=== PATIENT | female | born 1995 | race Caucasian/White ===

== ENCOUNTER 2020-11-13 22:00 | Emergency (ER) | payer OTHER ==
[2020-11-13] MEDS ORDERED: Albuterol/Ipratropium 3.0-0.5 MG/3 ML Neb Soln NEB ONE (23:22)
[2020-11-13] MEDS ORDERED: Benzonatate 100 MG Cap PO ONE (23:22)
[2020-11-14 00:05] LABS: ANION GAP 11.8 mEq/L (7-13); CHLORIDE,CL 102 mmol/L (98-107); SODIUM,NA 137 mmol/L (136-145)
--- NOTE | 2020-11-14 00:13 | EDM.PDOC ---
ED HPI GENERAL MEDICAL PROBLEM - General Chief Complaint: Respiratory Problem Stated Complaint: 97.7 TEMP, COUGHING, RUNNY NOSE Time Seen by Provider: 11/13/20 23:00 Source of Information: Reports: Patient History Limitations: Reports: No Limitations - History of Present Illness INITIAL COMMENTS - FREE TEXT/NARRATIVE: ED with c/o cough, congestion for one week. Hx allergies. Denies asthma. Tonight cough worse, throat sore from coughing. No nausea or vomiting. no COVID exposure. Trying OTC cough and cold but not helping. - Related Data Allergies Allergy/AdvReac Type Severity Reaction Status Date / Time No Known Allergies Allergy Verified 11/13/20 22:15 Home Meds: Home Meds . [No Known Home Meds] 11/13/20 [History] Past Medical History - Past Health History Medical/Surgical History: Denies Medical/Surgical History HEENT History: Reports: None Cardiovascular History: Reports: None Respiratory History: Reports: None Gastrointestinal History: Reports: None Genitourinary History: Reports: None DISABILITY SPECIALIST History: Reports: None Neurological History: Reports: None Psychiatric History: Reports: None Dermatologic History: Reports: None - Infectious Disease History Infectious Disease History: Reports: None - Past Surgical History Musculoskeletal Surgical History: Reports: None Social & Family History - Family History Family Medical History: No Pertinent Family History - Tobacco Use Tobacco Use Status *Q: Never Tobacco User Second Hand Smoke Exposure: No - Caffeine Use Caffeine Use: Reports: Coffee, Soda - Recreational Drug Use Recreational Drug Use: No ED ROS GENERAL - Review of Systems Review Of Systems: Comprehensive ROS is negative, except as noted in HPI. ED EXAM, GENERAL - Physical Exam Exam: See Below Exam Limited By: No Limitations General Appearance: Alert, Mild Distress, Thin Eye Exam: Bilateral Eye: EOMI Ears: Normal External Exam, Hearing Grossly Normal, Normal TMs Nose: Normal Inspection Throat/Mouth: Normal Inspection Head: Atraumatic, Normocephalic Neck: Normal Inspection Respiratory/Chest: No Respiratory Distress, Decreased Breath Sounds, Other (frequent dry cough). No: Rales, Rhonchi, Wheezing Cardiovascular: Normal Peripheral Pulses, Regular Rate, Rhythm GI/Abdominal: Normal Bowel Sounds, Soft Extremities: Normal Inspection Neurological: Alert, Oriented Psychiatric: Normal Affect, Normal Mood Skin Exam: Warm, Dry, Intact, Normal Color Course - Vital Signs Last Recorded V/S: Last Vital Signs Temp 99.1 F 11/13/20 22:15 Pulse 103 H 11/13/20 22:15 Resp 22 H 11/13/20 22:15 BP Pulse Ox 100 11/13/20 22:15 - Orders/Labs/Meds Labs: Laboratory Tests 11/13/20 11/13/20 11/13/20 Range/Units 22:05 23:40 23:40 WBC 8.6 (5.0-10.0) 10^3/uL RBC 4.06 L (4.2-5.4) 10^6/uL Hgb 13.2 (12.0-16.0) g/dL Hct 38.5 (37.0-47.0) % MCV 94.8 (80-100) fL MCH 32.5 (27.0-34.0) pg MCHC 34.3 (33.0-35.0) g/dL Plt Count 298 (150-450) 10^3/uL Sodium 137 (136-145) mmol/L Potassium 3.8 (3.5-5.1) mmol/L Chloride 102 (98-107) mmol/L Carbon Dioxide 27 (21-32) mmol/L Anion Gap 11.8 (7-13) mEq/L BUN 12 (7-18) mg/dL Creatinine 0.74 (0.55-1.02) mg/dL Est Cr Clr Drug Dosing 104.85 mL/min Estimated GFR (MDRD) > 60 BUN/Creatinine Ratio 16.2 (No establ ref range) Glucose 96 (70-99) mg/dL Calcium 9.1 (8.5-10.1) mg/dL Total Bilirubin 0.3 (0.2-1.0) mg/dL AST 23 (15-37) U/L ALT 32 (14-59) U/L Alkaline Phosphatase 121 H (46-116) U/L Total Protein 7.0 (6.4-8.2) g/dL Albumin 3.7 (3.4-5.0) g/dL Globulin 3.3 Albumin/Globulin Ratio 1.1 HCG, Qual Negative SARS-CoV-2 RNA (FRANK) Negative (NEGATIVE) Meds: Medications Discontinued Medications Generic Name Dose Route Start Last Admin Trade Name Freq PRN Reason Stop Dose Admin Albuterol Confirm 05/27/21 00:17 Albuterol 6.7 Gm Inhaler Administered 11/14/20 00:18 Dose 6.7 gm INH .STK-MED ONE Albuterol/Ipratropium 3 ml 11/13/20 23:22 11/13/20 23:31 Albuterol/Ipratropium 3.0-0.5 Mg/3 Ml Neb Soln NEB 11/13/20 23:23 3 ml ONETIME ONE Administration Benzonatate 100 mg 11/13/20 23:22 11/13/20 23:31 Benzonatate 100 Mg Cap PO 11/13/20 23:23 100 mg ONETIME ONE Administration Departure - Departure Time of Disposition: 00:09 Disposition: Home, Self-Care 01 Condition: Good Clinical Impression: URI (upper respiratory infection) Qualifiers: URI type: unspecified viral URI Qualified Code(s): J06.9 - Acute upper respiratory infection, unspecified Reactive airway disease with acute exacerbation Qualifiers: Asthma severity: mild Asthma persistence: intermittent Qualified Code(s): J45.21 - Mild intermittent asthma with (acute) exacerbation - Discharge Information *PRESCRIPTION DRUG MONITORING PROGRAM REVIEWED*: No *COPY OF PRESCRIPTION DRUG MONITORING REPORT IN PATIENT ARY: No Instructions: Asthma, Adult, Viral Respiratory Infection, [id number] Referrals: Tami Patrick MD [Primary Care Provider] - Forms: ED Department Discharge Additional Instructions: avoid lung irritants humidifier albuterol inhaler 2 puffs every 4 hours as needed for cough tesselon 200mg every 8 hours as needed for cough increase fluids follow up if symptoms not improving or worsening cough , fever or breathing difficulty Sepsis Event Note (ED) - Evaluation Sepsis Screening Result: No Definite Risk - Focused Exam Vital Signs: Vital Signs Temp Pulse Resp Pulse Ox 11/13/20 22:15 99.1 F 103 H 22 H 100
[2020-11-14] MEDS ORDERED: Albuterol 6.7 GM Inhaler INH ONE (00:17)
--- NOTE | 2020-11-14 00:35 | CR ---
PROCEDURE INFORMATION: Exam: XR Chest Exam date and time: 11/13/2020 11:17 PM Age: 25 years old Clinical indication: Cough and fever; Additional info: Cough fever, covid negative TECHNIQUE: Imaging protocol: XR of the chest. Views: 2 views. COMPARISON: No relevant prior studies available. FINDINGS: Lungs: The lungs are symmetric, well expanded and clear. Pleural spaces: There are no pleural effusions. There is no pneumothorax. Heart/Mediastinum: The heart size is normal as are the mediastinal and hilar contours. The pulmonary vessels are normal. Bones/joints: No acute osseous pathology is identified. IMPRESSION: Normal chest x-ray.
== END 2020-11-14 00:23 | disposition home or self-care (01) ==
LOC: DL.ED 22:00
DX: J45.21 Mild intermittent asthma with (acute) exacerbation (principal); J06.9 Acute upper respiratory infection, unspecified; Z20.822 Contact with and (suspected) exposure to COVID-19
CPT/HCPCS: 36415; 71046; 80053; 84703; 85027; 99284-25; A9270-GY; J7620-GY; U0002

== ENCOUNTER 2021-09-03 21:56 | Emergency (ER) | payer SELFPAY ==
[2021-09-03] MEDS ORDERED: Albuterol 0.083% 2.5 MG/3 ML Neb Soln NEB ONE (22:42)
[2021-09-03] MEDS ORDERED: Sodium Chloride 0.9% 1,000 ML IV ONE (22:45)
[2021-09-03 23:26] LABS: ANION GAP 16.2 mEq/L (7-13); CHLORIDE,CL 102 mmol/L (98-107); SODIUM,NA 137 mmol/L (136-145)
[2021-09-03 23:39] LABS: CORONAVIRUS COVID-19 NAA NEGATIVE (NEGATIVE)
[2021-09-03] MEDS ORDERED: Oseltamivir 75 MG Cap PO ONE (23:50)
== END 2021-09-04 00:23 | disposition home or self-care (01) ==
LOC: DL.ED 21:56
DX: O99.512 Diseases of the respiratory system complicating pregnancy, second trimester (principal); J10.1 Influenza due to other identified influenza virus with other respiratory manifestations; J45.909 Unspecified asthma, uncomplicated; Z3A.17 17 weeks gestation of pregnancy; Z20.822 Contact with and (suspected) exposure to COVID-19
CPT/HCPCS: 0240U; 36415; 80053; 85025; 87081; 87430; 99282; 99283-25; A9270-GY; J7030; J7613-GY

== ENCOUNTER 2022-02-06 06:50 | Observation (INO) | payer BC ==
[~2022-02-06 06:50] MED LIST: Acetaminophen 325 MG Tab PO PRN; Carboprost Tromethamine 250 MCG/1 ML Amp IM PRN; Lactated Ringers 1,000 ML IV ONE; Lactated Ringers 1,000 ML IV SCH; Lidocaine 1% 30 ML SDV INJECT PRN; Methylergonovine 0.2 MG/1 ML Amp IM PRN; Misoprostol 400 MCG (4 X 100 MCG TAB) RECTAL PRN; Nalbuphine 20 MG/1 ML Amp IM PRN; Ondansetron 4 MG/2 ML SDV IVPUSH PRN; Oxytocin/Normal Saline 30 UNIT/500 ML BAG IV SCH; Sodium Chloride 0.9% 10 ML Syringe FLUSH PRN; Tranexamic Acid 1,000 MG in Sodium Chloride 0.9% 100 ML IV PRN; fentaNYL 100 MCG/2 ML SDV IVPUSH PRN
[2022-02-06] MEDS: Misoprostol 25 MCG (1/4 of 100 MCG) Tab VAG PRN ×2 (08:25→12:30)
[2022-02-06] MEDS: Sodium Chloride 0.9% 10 ML Syringe FLUSH SCH ×2 (09:53→21:00)
[2022-02-06] MEDS: Lactated Ringers 1,000 ML IV SCH (19:30)
[2022-02-06] MEDS: Oxytocin/Normal Saline 30 UNIT/500 ML BAG IV SCH (19:31)
[2022-02-07] MEDS: Misoprostol 25 MCG (1/4 of 100 MCG) Tab VAG PRN (07:35)
[2022-02-07] MEDS: Sodium Chloride 0.9% 10 ML Syringe FLUSH SCH ×2 (10:00→22:28)
[2022-02-07] MEDS ORDERED: Misoprostol 50 MCG (1/2 of 100 MCG) Tab VAG ONE (11:31)
[2022-02-07] MEDS: Oxytocin/Normal Saline 30 UNIT/500 ML BAG IV SCH (19:17)
[2022-02-07] MEDS: Lactated Ringers 1,000 ML IV SCH (19:21)
[2022-02-08] MEDS ORDERED: Zolpidem 5 MG Tab PO PRN (02:22)
[2022-02-08] MEDS ORDERED: Benzocaine/Menthol 20%-0.5% Spray 78 GM Cannister TOP PRN (02:22)
[2022-02-08] MEDS ORDERED: Sodium Chloride 0.9% 10 ML Syringe FLUSH PRN (02:22)
[2022-02-08] MEDS ORDERED: Simethicone 80 MG Tab.Chew PO PRN (02:22)
[2022-02-08] MEDS: Oxytocin/Normal Saline 30 UNIT/500 ML BAG IV SCH (03:52)
[2022-02-08] MEDS: Ibuprofen 800 MG Tab PO PRN ×2 (08:22→19:14)
[2022-02-08] MEDS: Prenatal Multivitamin with Calcium/Folic Acid/Iron Tab PO SCH (08:22)
[2022-02-08] MEDS: Docusate Sodium 100 MG Cap PO PRN ×2 (08:23→19:14)
[2022-02-08] MEDS: Ferrous Sulfate 325 MG Tab PO SCH (08:23)
[2022-02-08] MEDS ORDERED: Measles, Mumps & Rubella Vaccine 0.5 ML SDV SUBCUT ONE (09:00)
[2022-02-09] MEDS: Ibuprofen 800 MG Tab PO PRN ×2 (04:19→14:34)
[2022-02-09] MEDS: Docusate Sodium 100 MG Cap PO PRN (10:25)
[2022-02-09] MEDS: Prenatal Multivitamin with Calcium/Folic Acid/Iron Tab PO SCH (10:25)
[2022-02-09] MEDS: Ferrous Sulfate 325 MG Tab PO SCH (10:25)
[2022-02-09] MEDS ORDERED: Morphine PF 1 MG/ML Amp ITHECAL ONE (16:44)
== END 2022-02-09 16:45 | disposition home or self-care (01) ==
LOC: DL.OBCHECK 06:50 → DL.OB 13:50
PROVIDERS: ADMIT Family Medicine; ATTEND Family Medicine
DX: O99.013 Anemia complicating pregnancy, third trimester (principal); O26.843 Uterine size-date discrepancy, third trimester; O09.893 Supervision of other high risk pregnancies, third trimester; O36.8130 Decreased fetal movements, third trimester, not applicable or unspecified; O99.891 Other specified diseases and conditions complicating pregnancy; G89.29 Other chronic pain; M54.2 Cervicalgia; Z67.41 Type O blood, Rh negative; Z28.39 Other underimmunization status; Z79.51 Long term (current) use of inhaled steroids; Z79.2 Long term (current) use of antibiotics; Z20.822 Contact with and (suspected) exposure to COVID-19; Z3A.39 39 weeks gestation of pregnancy; Z86.16 Personal history of COVID-19; Z79.899 Other long term (current) drug therapy
CPT/HCPCS: 36415; 59025; 59409; 62320; 85027; 90471; 90707; A9270-GY; J2210; J2274; J2405; J2590; J3010; J3490; J7120; U0002

== ENCOUNTER 2023-07-27 21:41 | Emergency (ER) | payer BC, MEDICAID ==
[2023-07-27] MEDS: LORazepam 1 MG Tab PO ONE (22:08)
[2023-07-27] MEDS: Naproxen 250 MG Tab PO ONE (22:55)
== END 2023-07-27 23:25 | disposition home or self-care (01) ==
LOC: DL.ED 21:41
DX: G60.9 Hereditary and idiopathic neuropathy, unspecified (principal); F43.9 Reaction to severe stress, unspecified; Z79.899 Other long term (current) drug therapy
CPT/HCPCS: 99283; A9270-GY

== ENCOUNTER 2025-02-17 21:58 | Inpatient (IN) | payer OTHER ==
[2025-02-17] MEDS ORDERED: Sodium Chloride 0.9% 10 ML Syringe FLUSH PRN (22:15)
[2025-02-17] MEDS ORDERED: Calcium Gluconate 10% 1 GM/10 ML SDV IV PRN (22:15)
[2025-02-17] MEDS ORDERED: Ondansetron 4 MG/2 ML SDV IVPUSH PRN (22:37)
[2025-02-17] MEDS ORDERED: Carboprost Tromethamine 250 MCG/1 ML Amp IM PRN (22:37)
[2025-02-17] MEDS ORDERED: Misoprostol 25 MCG (1/4 of 100 MCG) Tab PO PRN (22:37)
[2025-02-17 22:41] LABS: PLATELET COUNT,PLT 186.0 10^3/uL (150-450); RED BLOOD CELL COUNT 3.61 10^6/uL (4.2-5.4); WHITE BLOOD CELL COUNT,WBC 8.2 10^3/uL (5.0-10.0)
[2025-02-17] MEDS: Magnesium Sulf/Wat 4 GM/50 mL 4 GM in Premix Bag 50 BAG IV ONE (22:43)
[2025-02-17] MEDS ORDERED: Oxytocin/Lactated Ringers 30 UNIT/500 ML BAG IV SCH (22:45)
[2025-02-17] MEDS ORDERED: Magnesium Sulfate/Water 20 GM/500 ML Premix Bag IV SCH (22:45)
[2025-02-17 23:00] LABS: ALANINE AMINOTRANSFERASE,ALT 36 U/L (14-59); ASPARTATE AMNIOTRANSFERASE,AST 32 U/L (15-37); BLOOD UREA NITROGEN,BUN 12 mg/dL (7-18); CREATININE 0.76 mg/dL (0.55-1.02)
[2025-02-17 23:02] LABS: ESTIMATED GFR 109 mL/min (>=60)
[2025-02-17] MEDS: Magnesium Sulfate 20 GM/500mL 20 GM/500 ML BAG IV SCH (23:02)
[2025-02-17 23:03] LABS: LACTATE DEHYDROGENASE,LDH 248 U/L (81-234)
[2025-02-17] MEDS: Misoprostol 50 MCG (1/2 of 100 MCG) Tab PO PRN (23:12)
[2025-02-17 23:41] LABS: APPEARANCE,URINE SLIGHTLY CLOUDY (CLEAR); GLUCOSE,URINE NEGATIVE (NEGATIVE); OCCULT BLOOD,URINE MODERATE (NEGATIVE)
[2025-02-18 00:15] LABS: CREATININE,URINE RAND 70.48 mg/dL (No establ ref range); PROTEIN CREATININE RATIO,URINE 1224.5 mg/g (<150.0); PROTEIN,URINE RANDOM 86.3 mg/dL (0.0-11.9)
[2025-02-18] MEDS: Misoprostol 50 MCG (1/2 of 100 MCG) Tab PO SCH (07:07)
[2025-02-19] MEDS: Lactated Ringers 1,000 ML IV SCH (00:55)
[2025-02-19] MEDS: Oxytocin/Normal Saline 30 UNIT/500 ML BAG IV SCH (00:55)
[2025-02-19] MEDS ORDERED: ePHEDrine 50 MG/ML SDV IVPUSH PRN (03:08)
[2025-02-19] MEDS ORDERED: Ropivacaine 200 MG in Premix Bag 1 BAG EPIDUR SCH (03:15)
[2025-02-19] MEDS ORDERED: Oxytocin 10 Units/1 ML SDV IM PRN (08:43)
[2025-02-19] MEDS ORDERED: Carboprost Tromethamine 250 MCG/1 ML Amp IM PRN (08:43)
[2025-02-19] MEDS ORDERED: Sodium Chloride 0.9% 10 ML Syringe FLUSH PRN (08:43)
[2025-02-19] MEDS: Prenatal Multivitamin with Calcium/Folic Acid/Iron Tab PO SCH (09:45)
[2025-02-19] MEDS: Benzocaine/Menthol 20%-0.5% Spray 78 GM Cannister TOP PRN (09:45)
[2025-02-19] MEDS: Witch Hazel Medicated Pads 100/Jar TOP PRN (09:46)
[2025-02-19 13:39] LABS: PLATELET COUNT,PLT 177.0 10^3/uL (150-450); RED BLOOD CELL COUNT 3.53 10^6/uL (4.2-5.4); WHITE BLOOD CELL COUNT,WBC 12.4 10^3/uL (5.0-10.0)
[2025-02-19] MEDS: Lactated Ringers 1,000 ML IV ONE (20:55)
== END 2025-02-21 12:14 | disposition home or self-care (01) | DRG 807 ==
LOC: DL.OBCHECK 21:58 → DL.OB 22:15 → OBSVTOIN 02-19 07:46
PROVIDERS: ADMIT Family Medicine; ATTEND Family Medicine
PROC: 10D07Z6 Extraction of Products of Conception, Vacuum, Via Natural or Artificial Opening (ICD-10-PCS; principal; 2025-02-19)
PROC: 3E033VJ Introduction of Other Hormone into Peripheral Vein, Percutaneous Approach (ICD-10-PCS; principal; 2025-02-19)
PROC: 3E0R3BZ Introduction of Anesthetic Agent into Spinal Canal, Percutaneous Approach (ICD-10-PCS; principal; 2025-02-19)
PROC: 10907ZC Drainage of Amniotic Fluid, Therapeutic from Products of Conception, Via Natural or Artificial Opening (ICD-10-PCS; principal; 2025-02-19)
DX: O14.14 Severe pre-eclampsia complicating childbirth (principal); Z37.0 Single live birth; O99.02 Anemia complicating childbirth; Z86.16 Personal history of COVID-19; Z79.899 Other long term (current) drug therapy; Z3A.36 36 weeks gestation of pregnancy; O60.14X0 Preterm labor third trimester with preterm delivery third trimester, not applicable or unspecified; I73.00 Raynaud's syndrome without gangrene
CPT/HCPCS: 36415; 51702; 59409; 81003; 82565; 82570; 83615; 83735; 84156; 84450; 84460; 84520; 84550; 85027; 86850; 86900; 86901; A9270-GY; J1920; J2590; J3475; J7120

== ENCOUNTER 2025-02-21 22:52 | Emergency (ER) | payer OTHER ==
[2025-02-21 23:29] LABS: BASOPHILS PERCENT AUTO 0.4 % (0.0-1.0); EOSINOPHILS PERCENT AUTO 2.9 % (1.0-3.0); LYMPHOCYTES PERCENT AUTO 25.9 % (20.5-50.1); MONOCYTES PERCENT AUTO 7.2 % (2-8); NEUTROPHILS PERCENT AUTO 63.6 % (42.2-75.2); PLATELET COUNT,PLT 242 10^3/uL (150-450); RED BLOOD CELL COUNT 4.41 10^6/uL (4.2-5.4); WHITE BLOOD CELL COUNT,WBC 9.8 10^3/uL (5.0-10.0)
[2025-02-21 23:49] LABS: ALANINE AMINOTRANSFERASE,ALT 42.0 U/L (14-59); ASPARTATE AMNIOTRANSFERASE,AST 36.0 U/L (15-37); BILIRUBIN TOTAL 0.3 mg/dL (0.2-1.0); BLOOD UREA NITROGEN,BUN 15.0 mg/dL (7-18); CARBON DIOXIDE,CO2 27.0 mmol/L (21-32); CHLORIDE,CL 101.0 mmol/L (98-107); CREATININE 0.75 mg/dL (0.55-1.02); EST CRCL DRUG DOSING (CG) 103.61 mL/min; GLUCOSE RANDOM 84.0 mg/dL (70-99); POTASSIUM,K 3.9 mmol/L (3.5-5.1); PROTEIN TOTAL,TP 8.4 g/dL (6.4-8.2); SODIUM,NA 140.0 mmol/L (136-145)
[2025-02-21 23:50] LABS: A/G RATIO 0.62; ESTIMATED GFR 110.0 mL/min (>=60)
[2025-02-22] MEDS: Ketorolac 30 MG/ML SDV IVPUSH ONE (00:13)
[2025-02-22 01:13] LABS: APPEARANCE,URINE CLEAR (CLEAR); GLUCOSE,URINE NEGATIVE (NEGATIVE); OCCULT BLOOD,URINE MODERATE (NEGATIVE)
[2025-02-22] MEDS: hydrALAZINE 20 MG/ML SDV IVPUSH ONE ×2 (01:18→02:08)
[2025-02-22 01:28] LABS: EPITHELIAL CELLS,URINE FEW /HPF (NOT SEEN)
== END 2025-02-22 02:15 | disposition home or self-care (01) ==
LOC: DL.ED 22:52
DX: O16.5 Unspecified maternal hypertension, complicating the puerperium (principal); Z79.899 Other long term (current) drug therapy; Z86.16 Personal history of COVID-19
CPT/HCPCS: 36415; 80053; 81001; 83735; 85025; 96361; 96374; 96375; 96376; 99283; J0360; J1885; J1920; J7030

== ENCOUNTER 2025-02-22 13:21 | Observation (INO) | payer OTHER ==
[2025-02-22] MEDS ORDERED: Calcium Gluconate 10% 1 GM/10 ML SDV IVPUSH PRN (13:46)
[2025-02-22] MEDS ORDERED: Sodium Chloride 0.9% 10 ML Syringe FLUSH PRN (13:46)
[2025-02-22] MEDS: Lactated Ringers 1,000 ML IV SCH (14:00)
[2025-02-22] MEDS ORDERED: Magnesium Sulfate/Water 20 GM/500 ML Premix Bag IV SCH (14:00)
[2025-02-22 14:02] LABS: PLATELET COUNT,PLT 233.0 10^3/uL (150-450); RED BLOOD CELL COUNT 4.19 10^6/uL (4.2-5.4); WHITE BLOOD CELL COUNT,WBC 6.8 10^3/uL (5.0-10.0)
[2025-02-22] MEDS ORDERED: hydrALAZINE 20 MG/ML SDV IVPUSH PRN (14:11)
[2025-02-22] MEDS: Magnesium Sulfate 4 GM/100 mL 4 GM in Premix Bag 1 BAG IV ONE (14:13)
[2025-02-22] MEDS: Magnesium Sulfate 20 GM/500mL 20 GM/500 ML BAG IV SCH (14:39)
[2025-02-22 14:45] LABS: ALANINE AMINOTRANSFERASE,ALT 60 U/L (14-59); ASPARTATE AMNIOTRANSFERASE,AST 53 U/L (15-37); BILIRUBIN TOTAL 0.3 mg/dL (0.2-1.0); BLOOD UREA NITROGEN,BUN 11 mg/dL (7-18); CARBON DIOXIDE,CO2 24 mmol/L (21-32); CHLORIDE,CL 108 mmol/L (98-107); CREATININE 0.51 mg/dL (0.55-1.02); GLUCOSE RANDOM 83 mg/dL (70-99); LACTATE DEHYDROGENASE,LDH 234 U/L (81-234); POTASSIUM,K 4.0 mmol/L (3.5-5.1); PROTEIN TOTAL,TP 7.0 g/dL (6.4-8.2); SODIUM,NA 144 mmol/L (136-145)
[2025-02-22] MEDS ORDERED: Lactated Ringers 1,000 ML IV SCH (14:45)
[2025-02-22 14:47] LABS: A/G RATIO 0.63; ESTIMATED GFR 130 mL/min (>=60)
[2025-02-22] MEDS: Acetaminophen/Butalbital/Caffeine 325-50-40 MG Tab PO ONE (20:05)
[2025-02-22] MEDS: Sodium Chloride 0.9% 10 ML Syringe FLUSH SCH (21:04)
[2025-02-22] MEDS ORDERED: NIFEdipine 30 MG Tab.ER PO ONE (21:53)
[2025-02-23 07:44] LABS: ALANINE AMINOTRANSFERASE,ALT 55 U/L (14-59); ASPARTATE AMNIOTRANSFERASE,AST 38 U/L (15-37)
[2025-02-23] MEDS: Acetaminophen/HYDROcodone 325-5 MG Tab PO ONE (13:19)
[2025-02-23] MEDS: GI Cocktail Oral Solution 30 ML PO ONE (16:41)
[2025-02-23] MEDS ORDERED: NIFEdipine 30 MG Tab.ER PO SCH (21:00)
== END 2025-02-23 18:35 | disposition home or self-care (01) ==
LOC: DL.OB 13:31
PROVIDERS: ADMIT Family Medicine; ATTEND Family Medicine
DX: O14.15 Severe pre-eclampsia, complicating the puerperium (principal); Z79.899 Other long term (current) drug therapy
CPT/HCPCS: 36415; 71046; 80053; 83615; 83735; 84450; 84460; 84550; 85027; A9270; J2470; J3475; J7120; 96365; 96366; 96375; G0378